=== PATIENT | male | born 1975 | race Caucasian/White ===

== ENCOUNTER 2022-01-05 17:21 | Emergency (ER) | payer OTHER ==
[2022-01-05 17:54] VITALS: BP 117/80; PULSE 85; RESP 18; TEMP 98.2
--- NOTE | 2022-01-05 18:47 | ED ---
Lower Extremity Injury HPI - General Chief Complaint: Extremity Injury, Lower Stated Complaint: Foot injury Time Seen by Provider: 01/05/22 18:41 Source: patient, RN notes reviewed Mode of arrival: wheelchair Limitations: no limitations - History of Present Illness Initial Comments: This is a pleasant 46-year-old male who presents to emergency prior to sustaining injury to the dorsum his left foot. Patient was working when a tree fell on his foot. Patient is able to bear weight with increased pain. Pain to the dorsal foot. No ankle pain. No distal paresthesias. 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 No headache, no fever or chills, no changes in vision or hearing, no sore throat or difficulty with speech, no neck pain, no chest pain or shortness of breath, no abdominal pain, no nausea or vomiting, no changes in urination or bowel movements, no numbness or tingling, no skin rashes or lesions. - Related Data Previous Rx's Medication Instructions Recorded Acetaminophen [Tylenol] 500 mg PO Q4-6H PRN #24 tab 01/05/22 Naproxen [Naprosyn] 375 mg PO Q12HR PRN #20 tablet 01/05/22 Allergies Allergy/AdvReac Type Severity Reaction Status Date / Time No Known Allergies Allergy Verified 01/05/22 17:54 Review of Systems ROS Statement: Those systems with pertinent positive or pertinent negative responses have been documented in the HPI. ROS Other: All systems not noted in ROS Statement are negative. Past Medical History Past Medical History: No Reported History History of Any Multi-Drug Resistant Organisms: None Reported Past Surgical History: No Surgical Hx Reported Past Psychological History: No Psychological Hx Reported Smoking Status: Never smoker Past Alcohol Use History: None Reported Past Drug Use History: None Reported General Exam Limitations: no limitations General appearance: alert, in no apparent distress Head exam: Present: atraumatic, normocephalic, normal inspection Eye exam: Present: normal appearance, PERRL, EOMI. Absent: scleral icterus, conjunctival injection, periorbital swelling ENT exam: Present: normal exam, mucous membranes moist Neck exam: Present: normal inspection. Absent: tenderness, meningismus, lymphadenopathy Respiratory exam: Present: normal lung sounds bilaterally. Absent: respiratory distress, wheezes, rales, rhonchi, stridor Cardiovascular Exam: Present: regular rate, normal rhythm, normal heart sounds. Absent: systolic murmur, diastolic murmur, rubs, gallop, clicks GI/Abdominal exam: Present: soft, normal bowel sounds. Absent: distended, tend erness, guarding, rebound, rigid Extremities exam: Present: full ROM, tenderness (Superficial abrasion to the dorsum of the foot with overlying tenderness to the metatarsal/first and second metatarsophalangeal joint areas. No crepitus. There is superficial abrasion only involves the epidermis. No bleeding. Pulses intact. 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 No evidence of infectious process). Absent: pedal edema, joint swelling, calf tenderness Back exam: Present: normal inspection Neurological exam: Present: alert, oriented X3, CN II-XII intact Psychiatric exam: Present: normal affect, normal mood Skin exam: Present: warm, dry, intact, normal color. Absent: rash Course Vital Signs 01/05/22 17:50 Temperature 98.2 F Pulse Rate 85 Respiratory 18 Rate Blood Pressure 117/80 O2 Sat by Pulse 97 Oximetry Procedures - Orthopedic Splinting/Casting Injury #1 Side: left Lower Extremity Injury Location: short leg, ankle, foot Lower Extremity Immobilizer: posterior splint, Daniel wrap, synthetic pre-padded splint Other Orthopedic Equipment: crutches Medical Decision Making - Medical Decision Making Plain film x-rays ordered. X-rays reviewed by me. I believe the patient has a cortical irregularity in the proximal aspect of the fifth metatarsal. Awaiting radiology interpretation. I'm going to splint the patient placemen crutches. Follow-up with orthopedics given. Ibuprofen and acetaminophen. Discussed rice therapy. Patient was told to return to the ER for any signs or symptoms worsen. Told to return immediately if any other problems arise. All questions answered. Treatment plan discussed. Patient in agreement Every effort has been made to ensure accuracy of this dictation. However, due to the limitations of electronic medical records and dictation devices, errors in charting still occur. Supervising physician is Dr. Alli Rodriguez Clinical Impression: Closed fracture of fourth metatarsal of left foot Narrative: Proximal aspect Disposition: HOME SELF-CARE Condition: Good Instructions (If sedation given, give patient instructions): Crutch Instructions (ED), Foot Fracture in Adults (ED), Splint Care (ED) Additional Instructions: No weightbearing until follow-up with orthopedics. Return to the emergency department anytime for new symptoms worsen or problems arise. Return if any numbness or tingling arises. Prescriptions: Naproxen [Naprosyn] 375 mg PO Q12HR PRN #20 tablet PRN Reason: Pain Acetaminophen [Tylenol] 500 mg PO Q4-6H PRN #24 tab PRN Reason: Pain Is patient prescribed a controlled substance at d/c from ED?: No Referrals: Augie Philippe DO [Doctor of Osteopathic Medicine] - 01/08/22 Time of Disposition: 19:33
--- NOTE | 2022-01-05 19:39 | XR ---
EXAMINATION TYPE: XR foot complete LT DATE OF EXAM: 01/05/2022 COMPARISON: NONE HISTORY: Pain TECHNIQUE: 3 views FINDINGS: There is soft tissue swelling around the tip of the second toe. I see no fracture nor dislo cation. Metatarsals are intact. IMPRESSION: Soft tissue swelling consistent with a hematoma. No fracture seen.
== END 2022-01-05 20:25 | disposition home or self-care (01) ==
LOC: EC 17:21
DX: S92.345A Nondisplaced fracture of fourth metatarsal bone, left foot, initial encounter for closed fracture (principal); W14.XXXA Fall from tree, initial encounter